=== PATIENT | male | born 1960 | race Caucasian/White ===

== ENCOUNTER 2018-06-01 10:06 | Day surgery (SDC) | payer OTHER ==
[~2018-06-01 10:06] MED LIST: PROPOFOL 500 MG/50 ML EMU IV ONE
[2018-06-01 12:01] VITALS: BP 118/80; PULSE 64; RESP 18; TEMP 96.4; O2SAT 96
== END 2018-06-01 12:30 | disposition home or self-care (01) | DRG 951 ==
LOC: SURG 10:06
PROVIDERS: ATTEND Surgery
DX: Z12.11 Encounter for screening for malignant neoplasm of colon (principal); K57.32 Diverticulitis of large intestine without perforation or abscess without bleeding; Z86.010 Personal history of colon polyps
CPT/HCPCS: J2704